=== PATIENT | female | born 1965 | race Caucasian/White ===

== ENCOUNTER 2018-06-27 15:40 | Emergency (ER) | payer SELFPAY ==
[2018-06-27 15:41] VITALS: BP 137/70; PULSE 68; RESP 18; TEMP 36.6; O2SAT 100; BMI 31.8
--- NOTE | 2018-06-27 17:00 | ED.DCSUM_ITS ---
- ER Visit Summary Date of Service: 06/27/18 Chief Complaint: Out of medication History of Present Illness: The patient is a 53 F presents to the emergency department out of her bipolar medications. The patient moved here from [place]. She states that she was still following with her psychiatrist who jus t recently left practice. She has been out of her bipolar medications for about a week. She states she has been anxious. She denies being suicidal homicidal. She denies any drug or alcohol use. She states that she is going to be traveling back to [place] in 1 week. She denies any fevers or chills. Physical Examination: Vital signs reviewed General: Well-nourished, well-developed Head: Normocephalic, atraumatic Eyes: Pupils equal and reactive, extraocular muscles intact Neck, supple, no lymphadenopathy Heart: Regular rate and rhythm Respiratory: No distress, clear bilaterally Abdomen: Soft, nontender, nondistended, no peritoneal signs Back: Nontender Extremities: Nontender, no edema, no cords Skin: Normal color no rash Neuro: Alert and oriented, no focal or lateralizing deficits Test Results: [] Emergency Department Course and Treatment: The patient was on risperidone, Klonopin, Lexapro, Lyrica. She has been out of them for a week. She has no evidence of acute withdrawal. I did try to review automated reporting, but we are unable to because the patient lives in [place] and they do not participate. Patient has had no prior visits here. I am going to refill her psychiatric medications and give her a very short course of the Klonopin. She is not suicidal homicidal. She will be discharged home. Treatment Plan: [] Disposition: Discharge Impression: Medication refill This note was generated with [employer] dictation software. It may contain incorrect words, spelling, and punctuation that were not noted in review of the chart prior to signing ED Disposition - Plan for ED Patient: Chief Complaint: Med Refill Instructions: Med Refill Prescriptions: Escitalopram Oxalate [Lexapro] 10 mg PO DAILY #7 tab Risperidone 1 mg PO BID #14 tab Clonazepam [Klonopin] 2 mg PO TID #10 tab Referrals: Counseling,Center [GROUP OF PHYSICIANS] -
[2018-06-27] MEDS: LORazepam 1 MG Tablet 2 MG PO (17:19)
[2018-06-27 17:20] VITALS: PULSE 69; RESP 17; O2SAT 98; O2SAT 99
--- NOTE | 2018-06-27 17:22 | ED.RN ---
PT WITH INCREASED RESTLESSNESS, AND TROUBLE SLEEPING. BEEN OUT OF HOME MEDICATIONS X 6 DAYS.
--- NOTE | 2018-06-27 17:26 | ED.RN ---
PT GIVEN WRITTEN AND VERBAL DISCHARGE INSTRUCTIONS AND HOME GOING PRESCRIPTIONS. PT REPORTS SHE IS RETURNING TO [place] AND WILL FOLLOW UP WITH HER DRGeorge IN A COUPLE DAYS. PT EDUCATED NOT TO DRIVE AND VERBALIZES UNDERSTANDING OF ALL INSTRUCTIONS. PT AMBULATES OUT OF DEPT WITH . ENCOURAGED TO FOLLOW UP WITH [facility]SELING [facility] WHILE HERE IN [place].
--- OUTSIDE RECORDS SUMMARY | 2018-08-09 16:27 | XMS RPT_ITS ---
:1965 Author Organization [facility] Care Team Providers Name Role Phone Quincy Dubon Attending Unavailable Primay Care Physicia, No Primary Care Unavailable PROBLEMS PROBLEMS DATE TYPE CONDITION / CODE ATTENDING STATUS SOURCE 06/27/2018 Unknown F31.9 - Bipolar Quincy Dubon Active Novi disorder, [facility] unspecified / Hospital F31.9(ICD-10) Repository PROCEDURES PROCEDURES No Procedure Records FoundRESULTS RESULTS EMERGENCY DEPARTMENT Observed: 06/27/2018 Status: F Source: [place] SUMMARY 8:30 PM [facility] REPOSITORY [facility] Medical Records Department [address] [place] [address] Emergency Department Summary 06/27/18 1658 MR#: [id number] Acct: [id number] Name: ROBERTO ALEXANDRE Rep #: [id number] : 1965 53 From: Quincy Dubon MD PCP: Care Physician, No Primary Status: DEP ER - ER Visit Summary Date of Service: 06/27/18 Chief Complaint: Out of medication History of Present Illness: The patient is a 53 F presents to the emergency department out of her bipolar medications. The patient moved here from [place]. She states that she was still following with her psychiatrist who just recently left practice. She has been out of her bipolar medications for about a week. She states she has been anxious. She denies being suicidal homicidal. She denies any drug or alcohol use. She states that she is going to be traveling back to [place] in 1 week. She denies any fevers or chills. Physical Examination: Vital signs reviewed General: Well-nourished, well-developed Head: Normocephalic, atraumatic Eyes: Pupils equal and reactive, extraocular muscles intact Neck, supple, no lymphadenopathy Heart: Regular rate and rhythm Respiratory: No distress, clear bilaterally Abdomen: Soft, nontender, nondistended, no peritoneal signs Back: Nontender Extremities: Nontender, no edema, no cords Skin: Normal color no rash Neuro: Alert and oriented, no focal or lateralizing deficits Test Results: [] Emergency Department Course and Treatment: The patient was on risperidone, Klonopin, Lexapro, Lyrica. She has been out of them for a week. She has no evidence of acute withdrawal. I did try to review automated reporting, but we are unable to because the patient lives in [place] and they do not participate. Patient has had no prior visits here. I am going to refill her psychiatric medications and give her a very short course of the Klonopin. She is not suicidal homicidal. She will be discharged home. Treatment Plan: [] Disposition: Discharge Impression: Medication refill This note was generated with [employer] dictation software. It may contain incorrect words, spelling, and punctuation that were not noted in review of the chart prior to signing ED Disposition - Plan for ED Patient: Chief Complaint: Med Refill Instructions: Med Refill Prescriptions: Escitalopram Oxalate [Lexapro] 10 mg PO DAILY #7 tab Risperidone 1 mg PO BID #14 tab Clonazepam [Klonopin] 2 mg PO TID #10 tab Referrals: Counseling,Center [GROUP OF PHYSICIANS] - What to do if you have Problems For any increased pain, shortness of breath, bleeding, nausea or vomiting, chest pain, or any unexpected problems, contact your Primary Care Provider. Call [facility] ([phone]) or report to the closest Emergency Room. Call 911 if necessary. 06/27/182029 <Electronically signed by Quincy Dubon MD> Date Quincy Dubon MD Cosigner Signature (If Indicated): Date CC: No Primary Care Physician ALLERGIES ALLERGIES DATE TYPE / CODE NAME / CODE REACTION SEVERITY SOURCE 06/27/2018 Drug morphine/F0060 Other Unknown Novi [facility] Allergy/4160 61992(RXNORM) Hospital 56715(SNOMED Repository CT) 06/27/2018 Drug yellow Rash Unknown Novi [facility] Allergy/4160 dye/[id number] Hospital 00375(SNOMED (RXNORM) Repository CT) ENCOUNTERS ENCOUNTERS ADMIT/DISCHARGE ACCOUNT ADMITTING ENCOUNTER LOCATION SOURCE NUMBER CLASS 06/27/2018/ [id number] Emergency Matthew Novi 8 [facility] ing:ED Repository PAYERS PAYERS ENCOUNTER GUARANTOR PAYER SUBSCRIBER SOURCE 06/27/2018 ROBERTO CRAIG Primary NOT GIVENUNK Matthew [id number] S Insurance:SELF PAY [place], [place] Number: Effective Repository [phone]: [phone]) Date:2018-06-27 [id number] ()
== END 2018-06-27 17:26 | disposition home or self-care (01) ==
LOC: ED 17:15
PROVIDERS: Emergency Provider Emergency Medicine
DX: Z76.0 Encounter for issue of repeat prescription (principal); F31.9 Bipolar disorder, unspecified
CPT/HCPCS: 99283

== ENCOUNTER 2018-09-16 22:57 | Emergency (ER) | payer SELFPAY ==
[2018-09-16 22:58] VITALS: BP 134/82; PULSE 88; RESP 12; TEMP 36.7; O2SAT 99; BMI 30.8
--- NOTE | 2018-09-16 23:23 | ED.VISSUMM ---
- ER Visit Summary Date of Service: 09/16/18 Chief Complaint: [] Scalp abscess History of Present Illness: The patient is a 53 F she has a superficial infections to her scalp. One is on the top of her head and to her on the back of her scalp. She has had these remotely but nothing recent. She is been scratching at them and trying to unroofed them. There is been no drainage. She is been using Tylenol. Physical Examination: [] Vital signs reviewed General: Well-nourished well-developed Head: Normocephalic atraumatic see skin exam Eyes: Pupils equal round and reactive to light extraocular movements intact ENT: TMs clear no hemotympanum no trauma Neck: Nontender full range of motion Cardiovascular: Regular rate rhythm no murmurs normal S1-S2 Respiratory: No distress clear to auscultation bilaterally chest nontender Abdomen: Soft nontender nondistended normal bowel sounds no masses Back: Nontender no CVA tenderness Extremities: Nontender active range of motion ?4 extremities no trauma Skin: She has a circular area of inflammation of the top of her scalp with a central scab. It measures 3 x 3 cm. Very mild surrounding erythema measuring 1 cm. It is not boggy. There is no significant fluid inside it. The back of her head has a dime size area x2 of superficial inflammation with central superficial ulcer Neuro alert oriented cranial nerves II through XII intact normal strength sensation reflexes Test Results: [] Emergency Department Course and Treatment: [] The scab on the top of her head measured a dime size. It was removed. There is no drainage of pus. I do not think there is any pus inside the wound as it is too superficial. Patient was given Bactrim. She was also given clindamycin lotion prescription. She was given [employer] here and a home pack and will follow-up. At this time there is nothing to anesthetize and incise and drain as it is too superficial. These appear to be MRSA Treatment Plan: [] Disposition: [] Impression: [] Superficial scalp infection This note was generated with [employer] software. It may contain incorrect words, spelling, and punctuation that were not noted in review of the chart prior to signing ED Disposition - Plan for ED Patient: Referrals: NOT,DEFINED [Primary Care Provider] -
--- NOTE | 2018-09-16 23:25 | ED.DEP ---
ED Disposition - Plan for ED Patient: Disposition: Home or Assisted Living Instructions: ED Skin Infec MRSA Suspect Conf Prescriptions: Clindamycin Phosphate [Cleocin T] 1 ml TP BID #14 lotion Smz/Tmp Ds [Bactrim Ds] 1 tab PO BID #20 tab Referrals: NOT,DEFINED [NON-STAFF] - Dylan Balbuena MD [STAFF PHYSICIAN] -
[2018-09-16] MEDS: HYDROcodone Bitartrate/Apap 5/325 Tablet PO ×2 (23:41)
[2018-09-16] MEDS: Smz/Tmp Ds Tablet 1 TABLET PO (23:41)
== END 2018-09-16 23:45 | disposition home or self-care (01) ==
PROVIDERS: Emergency Provider Emergency Medicine
DX: L02.811 Cutaneous abscess of head [any part, except face] (principal); F32.9 Major depressive disorder, single episode, unspecified; F41.9 Anxiety disorder, unspecified; Z72.0 Tobacco use
CPT/HCPCS: 99283